=== PATIENT | female | born 1990 | race American Indian/Alaskan Native ===

== ENCOUNTER 2021-08-08 09:47 | Day surgery (SDC) | payer OTHER ==
[2021-08-08] MEDS ORDERED: LACTATED RINGERS 1,000 ML ONE (10:31)
--- NOTE | 2021-08-08 10:34 | Anesthesia Consultation ---
Anesthesia Consult and Med Hx Date of service: 08/08/21 - Airway Anesthetic Teeth Evaluation: Good ROM Head & Neck: Adequate Mental/Hyoid Distance: Adequate Mallampati Class: Class II Intubation Access Assessment: Good - Pulmonary Exam CTA: Yes - Cardiac Exam Cardiac Exam: RRR - Pre-Operative Health Status ASA Pre-Surgery Classification: ASA1 Proposed Anesthetic Plan: General - Pulmonary Hx Asthma: Yes (Childhood) - Cardiovascular System Hx Angina: Yes (chest pain 08/01, possible heart burn, normal ekg) - Central Nervous System Hx Psychiatric Problems: No - Other Systems Hx Alcohol Use: Yes (Occas) Hx Cancer: No
--- NOTE | 2021-08-08 10:34 | Anesthesia Day of Surgery ---
Anesthesia Day of Surgery - Day of Surgery Patient Examined: Yes Patient H&P Reviewed: Yes Patient is NPO: Yes
[2021-08-08] MEDS ORDERED: ceFAZolin/Water 2 GM/20 ML 2 GM/20 ML SYRINGE IV ONE ×2 (10:35→11:30)
[2021-08-08] MEDS ORDERED: fentaNYL 100 MCG/2 ML INJ ONE (10:53)
[2021-08-08] MEDS ORDERED: propofoL 200 MG/20 ML VIAL IV ONE (10:53)
[2021-08-08] MEDS ORDERED: FERRIC SUBSULFATE TOPICAL SOLN 8 ML TP ONE ×2 (10:59→11:40)
[2021-08-08] MEDS ORDERED: MIDAZOLAM 2 MG/2 ML INJ IV NR (11:00)
[2021-08-08] MEDS ORDERED: SILVER NITRATE APPLICATOR 1 EA TP ONE (11:00)
[2021-08-08] MEDS ORDERED: POTASSIUM IODIDE/IODINE (LUGOLS) 30 ML TP ONE (11:00)
[2021-08-08] MEDS ORDERED: LACTATED RINGERS 1,000 ML IV SCH (11:00)
--- NOTE | 2021-08-08 11:07 | History and Physical Report ---
History of Present Illness Date of examination: 08/08/21 Date of admission: 08/08/21 Chief complaint: NORMA II from colpo bx. History of present illness: Office based screening discovered NORMA II.Nulligravid. LMP 07/19/21. Past History Past Medical History: no pertinent history Past Surgical History: no surgical history Medications and Allergies Allergies Allergy/AdvReac Type Severity Reaction Status Date / Time No Known Allergies Allergy Unverified 08/04/21 11:16 Home Medications Medication Instructions Recorded Confirmed Last Taken Type Norgestimate-Ethinyl Estradiol 1 each PO DAILY 08/04/21 08/04/21 Unknown History [Sprintec 28 Day Tablet] Active Meds: Active Medications Lactated Ringer's (Lactated Ringers) 1,000 mls @ 100 mls/hr IV DIRECT LUZ Midazolam HCl (Midazolam 2 Mg/2 Ml Inj) 2 mg IV PREOP NR Stop: 08/08/21 23:59 Review of Systems All systems: negative - Physical Exam Breasts: Positive: deferred Lungs: Positive: Normal air movement Abdomen: Positive: normal appearance, soft. Negative: tenderness Extremities: Positive: normal Deep Tendon Reflex Grade: Normal +2 Results All other labs normal. Assessment and Plan - Patient Problems (1) NORMA II (cervical intraepithelial neoplasia II) Current Visit: Yes Status: Acute Plan to address problem: For LEEP.
[2021-08-08] MEDS ORDERED: KETOROLAC 30 MG/1 ML INJ ONE (11:32)
[2021-08-08] MEDS ORDERED: ONDANSETRON 4 MG/2 ML INJ ONE (11:32)
[2021-08-08] MEDS ORDERED: SODIUM CHLORIDE 0.9% IRR 1,500 ML BOTTLE IR ONE (11:39)
[2021-08-08] MEDS ORDERED: dexAMETHasone 20 MG/5 ML VIAL ONE (11:52)
--- NOTE | 2021-08-08 12:06 | Operative Report ---
Operative Report Operative Report: Date of surgery: August 08, 2021 Preop diagnosis: NORMA-2 Postop diagnosis: Same Procedure: LEEP Surgeon: Chuck Vivas MD Anesthesiologist: Aly ACRLIN Cold Strip Roller: Erica Grace CRNA Complications: None EBL: Less than 5 cc. Findings the vulva vagina and cervix were grossly normal. Procedure in details: The patient was taken to the operating room and and given general anesthesia. She was put in the lithotomy position and prepped and the vulva vagina and mons. The drapes were placed. A timeout was done. With permission from the principal secretary the procedure started. An insulated bivalve speculum was used to expose the cervix without difficulty. A 2 cm diameter loop electrode was used to excise a sliver of the distal cervix in 1 block. The tissue was tagged at the 6 o'clock position with a suture. The excision bed was cauterized with the Bovie. Monsel's solution was applied. Hemostasis was great. There were no complications. All instruments and sponges were accounted for. The patient was transferred to the recovery room in satisfactory condition.
[2021-08-08 15:48] VITALS: BP 91/61
--- NOTE | 2021-08-08 17:31 | Post Anesthesia Evaluation ---
- Post Anesthesia Evaluation Patient Participated: Yes Airway Patent: Yes Stable Respiratory Function: Yes Nausea/Vomiting: No Temp > 96.8F: Yes Pain Manageable: Yes Adequeate Hydration: Yes Anesthesia Complications: No Block Receding Appropriately: Not Applicable Patient on Ventilator: No
--- NOTE | 2021-08-09 17:35 | Electrocardiograph Report ---
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
== END 2021-08-08 13:15 | disposition home or self-care (01) ==
LOC: OR 09:47
PROVIDERS: ATTEND Obstetrics & Gynecology
DX: N87.1 Moderate cervical dysplasia (principal); J45.909 Unspecified asthma, uncomplicated; Z79.899 Other long term (current) drug therapy; Z98.890 Other specified postprocedural states; Z72.89 Other problems related to lifestyle
CPT/HCPCS: 57522; 81025; 88305; 93005; J0690; J1100; J1885; J2405; J2704; J3010; J7120; 88307